=== PATIENT | female | born 1960 | race Caucasian/White ===

== ENCOUNTER → 2024-10-24 14:25 | Outpatient (REF) | payer MEDICARE, OTHER, SELFPAY | LOC: RAD 14:25 | PROVIDERS: ATTENDING PHYSICIAN Nurse Practitioner Family; FAMILY PHYSICIAN Family Medicine | DX: R07.1 Chest pain on breathing (principal); R07.81 Pleurodynia | CPT/HCPCS: 36415; 71101; 85379 ==

== ENCOUNTER → 2025-04-19 07:50 | Outpatient (REF) | payer MEDICARE, OTHER, SELFPAY | LOC: WDC 07:50 | PROVIDERS: ATTENDING PHYSICIAN Family Medicine | DX: Z12.31 Encounter for screening mammogram for malignant neoplasm of breast (principal) | CPT/HCPCS: 77063; 77067 ==